=== PATIENT | female | born 1980 | race Caucasian/White ===

== ENCOUNTER → 2017-03-07 | Outpatient (CLI) | payer BC, OTHER | LOC: RAD 08:14 | PROVIDERS: ATTEND Internal Medicine | DX: M54.6 Pain in thoracic spine (principal); M54.12 Radiculopathy, cervical region ==

== ENCOUNTER → 2017-03-15 | Outpatient (CLI) | payer BC, OTHER ==
--- NOTE | 2017-03-16 08:14 | MRI ---
HISTORY: Mid thoracic back pain Study: MRI thoracic spine without contrast Comparison: None Technique: Multi planar multi sequence non contrast imaging Findings: The prevertebral soft tissues are normal. The vertebral body alignment and bone signal is normal. No compression fractures are identified. The intervertebral discs are well hydrated. There is no evide nce for compressive disc disease or compresses spondylitic change at any level. The thoracic spinal cord is normal in size and configuration and without foci of abnormal signal or evidence for syrinx. IMPRESSION: No significant abnormality identified Reported By:
== END ==
LOC: RAD 15:44
PROVIDERS: ATTEND Internal Medicine
DX: M54.6 Pain in thoracic spine (principal); M54.12 Radiculopathy, cervical region
CPT/HCPCS: 72146